=== PATIENT | male | born 1980 | race African-American/Black ===

== ENCOUNTER 2018-09-25 23:52 | Emergency (ER) | payer MEDICAID, OTHER ==
[~2018-09-25] VITALS: Ht 180.3 cm; Wt 82.0 kg
[2018-09-26 04:24] LABS: BASOPHILS % 0.5 % (0.0-2.0); EOSINOPHILS % 1.6 % (0.0-5.0); HEMATOCRIT. 39.9 % (42.0-52.0); HEMOGLOBIN. 13.7 g/dL (14.0-18.0); LYMPHOCYTES % 30.3 % (20.0-50.0); MEAN CORPUSCULAR HEMOGLOBIN 32.2 pg (28.0-32.0); MEAN CORPUSCULAR VOLUME 93.9 fL (80.0-94.0); MEAN PLATELET VOLUME 7.3 fl (7.4-10.4); NEUTROPHILS % 55.6 % (40.0-76.0); PLATELET 237 x1000/uL (130-400); RED BLOOD CELL COUNT 4.24 mill/uL (4.7-6.1); RED CELL DISTRIBUTION WIDTH 13.5 % (11.6-14.6)
[2018-09-26 04:29] LABS: CHLORIDE 101 mEq/L (98-107)
[2018-09-26 04:32] LABS: ETHANOL BLOOD < 10 mg/dL
[2018-09-26] MEDS ORDERED: CHLORDIAZEPOXIDE 25MG CAPSULE PO ONE (05:15)
[2018-09-26 05:32] VITALS: BP 127/94
== END 2018-09-26 05:34 | disposition home or self-care (01) ==
LOC: ER 23:52
DX: R55 Syncope and collapse (principal); R42 Dizziness and giddiness; R53.1 Weakness; I10 Essential (primary) hypertension; F17.200 Nicotine dependence, unspecified, uncomplicated; F12.10 Cannabis abuse, uncomplicated; F10.20 Alcohol dependence, uncomplicated; Y90.0 Blood alcohol level of less than 20 mg/100 ml
CPT/HCPCS: 36415; 80320; 93005; 99284; G0480